=== PATIENT | male | born 1985 | race Hispanic/Latino ===

== ENCOUNTER 2020-03-16 15:15 | Emergency (ER) | payer OTHER ==
[~2020-03-16] VITALS: Ht 167.6 cm; Wt 68.2 kg
[2020-03-16 17:50] VITALS: BP 127/69
== END 2020-03-16 17:50 | disposition home or self-care (01) | DRG 951 ==
LOC: ED 15:15
DX: Z20.828 Contact with and (suspected) exposure to other viral communicable diseases (principal)